=== PATIENT | female | born 1980 | race Caucasian/White ===

== ENCOUNTER 2018-02-05 11:12 | Emergency (ER) | payer MEDICAID, MEDICARE, OTHER ==
[2018-02-05 11:12] VITALS: BMI 29.5
[2018-02-05 12:03] VITALS: BP 120/82; PULSE 100; RESP 18; TEMP 98.1; O2SAT 98
[2018-02-05 12:51] LABS: SQUAMOUS EPITHIAL 1 /hpf (0-5); URINE BACTERIA RARE (<OCC); URINE BILIRUBIN NEGATIVE (NEGATIVE); URINE BLOOD NEGATIVE (NEGATIVE); URINE CLARITY Clear (Clear); URINE COLOR Straw (YELLOW); URINE GLUCOSE (UA) NORMAL (Normal); URINE LEUKOCYTE ESTERASE NEG Leu/uL (Negative); URINE PROTEIN NEGATIVE (NEGATIVE); URINE UROBILINOGEN NORMAL mg/dL (0.2-1.0)
--- NOTE | 2018-02-05 13:10 | C.PDOC ---
History Of Present Illness 37 year old female, whose PMHx includes Bipolar Disorder and Schizophrenia, is brought to the ED by police after they were notified of patient's agitated and belligerent behavior prior to arrival. Patient is not forthcoming with details about why she has been brought to the ED today. Patient states that she "talks to herself out loud" and police find this to be abnormal. Patient has a past psychiatric history, but believes that she does not need to take her medicine. She denies suicidal/homicidal ideation at this time. Time Seen by Provider: 02/05/18 12:21 Chief Complaint (Nursing): Psychiatric Evaluation History Per: Patient History/Exam Limitations: no limitations Onset/Duration Of Symptoms: Hrs Current Symptoms Are (Timing): Still Present Suicide/Self Injury Attempted (Context): None Associated Symptoms: denies: Suicidal Thoughts, Suicidal Plan Involuntary Hold By: None Recent travel outside of the [place]: No Additional History Per: Patient, Law Enforcement Past Medical History Reviewed: Historical Data, Nursing Documentation, Vital Signs Vital Signs: Last Vital Signs Temp 98.1 F 02/05/18 11:58 Pulse 100 H 02/05/18 11:58 Resp 18 02/05/18 11:58 BP 120/82 02/05/18 11:58 Pulse Ox 98 02/05/18 14:57 - Medical History PMH: Bipolar Disorder, Schizophrenia Denies: Diabetes, Hepatitis, HIV, HTN, Seizures, Sexually Transmitted Disease Surgical History: No Surg Hx - [facility] INDIVID PSYCHOTHERAP NEC (03/23/14) OTHER GROUP THERAPY (03/23/14) Family History: States: Unknown Family Hx - Social History Hx Tobacco Use: No Hx Alcohol Use: No Hx Substance Use: No - Immunization History Hx Tetanus Toxoid Vaccination: No Hx Influenza Vaccination: No Hx Pneumococcal Vaccination: No Review Of Systems Psych: Negative for: Suicidal ideation Physical Exam - Physical Exam Appears: Non-toxic, No Acute Distress Skin: Normal Color, Warm, Dry Head: Atraumatic, Normacephalic Eye(s): bilateral: Normal Inspection Oral Mucosa: Moist Neck: Supple Chest: Symmetrical, No Deformity, No Tenderness Cardiovascular: Rhythm Regular, No Murmur Respiratory: Normal Breath Sounds, No Rales, No Rhonchi, No Wheezing Extremity: Normal ROM, Capillary Refill (less than 2 seconds ) Neurological/Psych: Oriented x3, Normal Speech, Normal Cognition, Other ( bizarre affect ) ED Course And Treatment - Laboratory Results Result Diagrams: 02/05/18 13:57 02/05/18 13:57 O2 Sat by Pulse Oximetry: 98 (on RA) Pulse Ox Interpretation: Normal Medical Decision Making Medical Decision Making: Assessment: bizarre behavior Plan: * Bloodwork * Urinalysis * reassess and disposition Progress: Bloodwork and urinalysis ordered and reviewed. Patient was evaluated by Dr. Richardson and has been cleared for discharge under diagnosis of schizoaffective disorder, bipolar type. Disposition Discussed With : Jose Richardson Doctor Will See Patient In The: ED Counseled Patient/Family Regarding: Studies Performed, Diagnosis, Need For Followup - Disposition Disposition: HOME/ ROUTINE Disposition Time: 14:54 Condition: STABLE Additional Instructions: follow up with [facility] on 02/08/18 as scheduled return to hospital if symptoms worsens continue home medications Instructions: Schizoaffective Disorder (DC) Forms: [facility] ([place]), General Discharge Instructions - Clinical Impression Clinical Impression: Schizoaffective disorder, bipolar type - Scribe Statement The provider has reviewed the documentation as recorded by the Scribe (Evelyne Rivas) Provider Attestation: All medical record entries made by the Scribe were at my direction and personally dictated by me. I have reviewed the chart and agree that the record accurately reflects my personal performance of the history, physical exam, medical decision making, and the department course for this patient. I have also personally directed, reviewed, and agree with the discharge instructions and disposition.
[2018-02-05 13:25] LABS: BARBITURATES, UR NEGATIVE (NEGATIVE); BENZODIAZEPINES, UR NEGATIVE (NEGATIVE); OPIATES, UR NEGATIVE (NEGATIVE); PHENCYCLIDINE, UR NEGATIVE (NEGATIVE)
[2018-02-05 14:00] LABS: BASO # 0.1 K/uL (0.0-0.2); BASO % 0.7 % (0.0-2.0); EOS % 0.2 % (0.0-4.0); HEMOGLOBIN 13.4 g/dL (11.0-16.0); LYMPH % 8.1 % (20.0-40.0); MEAN CORPUSCULAR HEMOGLOBIN 31.8 pg (27.0-31.0); MEAN PLATELET VOLUME 8.7 fL (7.2-11.7); MONO # 0.5 K/uL (0.0-0.8); NEUT # 10.8 K/uL (1.8-7.0); PLATELET COUNT 283 K/uL (130-400); WHITE BLOOD COUNT 12.4 K/uL (4.8-10.8)
[2018-02-05 14:01] LABS: MEAN CELL VOLUME 93.7 fL (81.0-99.0)
[2018-02-05 14:16] LABS: ALB/GLOB RATIO 1.2 (1.0-2.1); ALBUMIN 4.3 g/dL (3.5-5.0); ALT/SGPT 14 U/L (9-52); AST/SGOT 26 U/L (14-36); BLOOD UREA NITROGEN 13 mg/dL (7-17); CALCIUM 9.3 mg/dl (8.6-10.4); GFR AFRICAN-AMERICAN > 60; GFR NON-AFRICAN AMERICAN > 60
[2018-02-05 14:17] LABS: EOSINOPHIL 1 % (0-4); LYMPHOCYTE 7 % (20-40); MONOCYTE 4 % (0-10); NEUTROPHIL 88 % (50-75); PLATELET ESTIMATE NORMAL (NORMAL); TOTAL CELLS COUNTED 100
[2018-02-05 14:18] LABS: ANISOCYTOSIS SLIGHT
== END 2018-02-05 15:05 | disposition home or self-care (01) ==
LOC: C.ER 11:12
DX: F25.0 Schizoaffective disorder, bipolar type (principal)
CPT/HCPCS: 36415; 80053; 81001; 84702; 85025; 99283; G0480